=== PATIENT | male | born 1990 | race American Indian/Alaskan Native ===

== ENCOUNTER 2019-06-20 02:46 | Emergency (ER) | payer SELFPAY ==
[2019-06-20 02:57] VITALS: BP 123/84
[2019-06-20] MEDS ORDERED: LIDOCAINE-MPF (1%) 10 MG/1 ML VIAL 5 ML INFILTRATI ONE (03:24)
--- NOTE | 2019-06-20 04:06 | Emergency Department Report ---
ED Male HPI - General Chief complaint: Urogenital-Male Stated complaint: PENIS DISCHARGE Source: patient Mode of arrival: Ambulatory Limitations: No Limitations - History of Present Illness Initial comments: Patient is a 29-year-old -Filipino male with no past medical history presents to the ED with complaint of acute onset persistent dysuria, urinary frequency and urgency, penile discharge for the last 2 days. Patient states that his sexual partner was recently diagnosed and treated for gonorrhea and chlamydia about 1 week ago. Patient states that the pain has worsened in the last 12 hours. Patient denies dizziness, fever, chills, cough, nausea, vomiting, chest pain, testicular pain, scrotal pain, hematuria or traumatic injury. MD Complaint: penile discharge, dysuria -: Sudden, days(s) (2) Location: penis Radiation: none Severity: moderate Severity scale (0 -10): 4 Quality: aching, burning Consistency: constant Improves with: none Worsens with: urination denies other symptoms, discharge, dysuria. denies: swelling, mass, rash, urinary retention, blood in urine, fever, nausea/vomiting, incontinence, other - Related Data Sexually active: Yes Previous Rx's Medication Instructions Recorded Last Taken Type Azithromycin 1,000 mg PO ONCE #2 tablet 06/20/19 Unknown Rx Allergies Allergy/AdvReac Type Severity Reaction Status Date / Time No Known Allergies Allergy Unverified 06/20/19 02:54 ED Review of Systems ROS: Stated complaint: PENIS DISCHARGE Other details as noted in HPI Constitutional: denies: chills, fever Eyes: denies: eye pain, eye discharge, vision change ENT: denies: ear pain, throat pain Respiratory: denies: cough, shortness of breath, wheezing Cardiovascular: denies: chest pain, palpitations Endocrine: no symptoms reported Gastrointestinal: denies: abdominal pain, nausea, diarrhea Genitourinary: urgency, frequency, discharge. denies: dysuria, testicular pain Musculoskeletal: denies: back pain, joint swelling, arthralgia Skin: denies: rash, lesions Neurological: denies: headache, weakness, paresthesias Psychiatric: denies: anxiety, depression Hematological/Lymphatic: denies: easy bleeding, easy bruising ED Past Medical Hx - Past Medical History Previous Medical History?: No - Surgical History Past Surgical History?: No - Social History Smoking Status: Never Smoker Substance Use Type: None - Medications Home Medications: Home Medications Medication Instructions Recorded Confirmed Last Taken Type Azithromycin 1,000 mg PO ONCE #2 tablet 06/20/19 Unknown Rx ED Physical Exam - General Limitations: No Limitations General appearance: alert, in no apparent distress - Head Head exam: Present: atraumatic, normocephalic, normal inspection - Eye Eye exam: Present: normal appearance, PERRL, EOMI Pupils: Present: normal accommodation - ENT ENT exam: Present: normal exam, normal orophraynx, mucous membranes moist, TM's normal bilaterally, normal external ear exam - Neck Neck exam: Present: normal inspection, full ROM - Respiratory Respiratory exam: Present: normal lung sounds bilaterally. Absent: respiratory distress, wheezes, rhonchi, chest wall tenderness, accessory muscle use, decreased breath sounds, prolonged expiratory - Cardiovascular Cardiovascular Exam: Present: regular rate, normal rhythm, normal heart sounds. Absent: systolic murmur, diastolic murmur, rubs, gallop - GI/Abdominal GI/Abdominal exam: Present: soft, normal bowel sounds. Absent: tenderness, guarding, rebound, hyperactive bowel sounds - exam: Present: urethral discharge External exam: Present: normal external exam - Extremities Exam Extremities exam: Present: normal inspection, full ROM, normal capillary refill - Back Exam Back exam: Present: normal inspection, full ROM. Absent: tenderness, muscle spasm, paraspinal tenderness - Neurological Exam Neurological exam: Present: alert, oriented X3, CN II-XII intact, normal gait, reflexes normal - Psychiatric Psychiatric exam: Present: normal affect, normal mood - Skin Skin exam: Present: warm, dry, intact, normal color. Absent: rash ED Course Vital Signs 06/20/19 02:50 Temperature 97.5 F L Pulse Rate 65 Respiratory 18 Rate Blood Pressure 123/84 O2 Sat by Pulse 100 Oximetry ED Medical Decision Making - Medical Decision Making This is a 29-year-old -Fil[place] male with no past medical history presents to the ED with complaint of acute onset persistent dysuria, urinary frequency and urgency, penile discharge for the last 2 days. Patient states that his sexual partner was recently diagnosed and treated for gonorrhea and chlamydia about 1 week ago. Patient states that the pain has worsened in the last 12 hours. In the ED, patient is alert and oriented x3 and is not in distress. Patient was empirically treated for gonorrhea in the ED with Rocephin 250 mg intramuscular injection. Urinalysis was collected for chlamydia and gonorrhea tests. Patient was discharged home on prescription for azithromycin for chlamydia treatment. Patient was advised to follow-up with [facility] for further evaluation and STD testing. Patient was also advised to ensure that he and the sexual partner gets treated at the health department. Patient was also educated on safe sexual practices. Patient was advised to return to the ED immediately if symptoms get worse. - Differential Diagnosis Urethritis; STD, UTI Critical care attestation.: If time is entered above; I have spent that time in minutes in the direct care of this critically ill patient, excluding procedure time. ED Disposition Clinical Impression: Urethritis, gonococcal, acute, STD (sexually transmitted disease) Disposition: TO HOME OR SELFCARE Is pt being admited?: No Does the pt Need Aspirin: No Condition: Stable Instructions: Gonococcal Urethritis (ED), Safe Sex (ED), Sexually Transmitted Diseases (ED) Additional Instructions: Take medication with food, drink plenty of fluids and follow-up with the [facility] for further STD testing and treatment. Ensure that your sex ual partner also gets treated for the same. Observe safe sexual practices. Return to the ED immediately if symptoms get worse. Prescriptions: Azithromycin 1,000 mg PO ONCE #2 tablet Referrals: [facility] Depart [Outside] - 3-5 Days Time of Disposition: 04:00 Print Language: ESTONIAN
[2019-06-20 04:24] LABS: Bacteria,Urine 1+ /HPF (Negative); Bilirubin,Urine NEG (Negative); Blood,Urine NEG (Negative); Color,Urine Yellow (Yellow); Mucus,Urine 1+ /HPF; Protein,Urine <15 mg/dL mg/dL (Negative)
== END 2019-06-20 04:31 | disposition home or self-care (01) ==
LOC: ED 02:46
DX: A54.01 Gonococcal cystitis and urethritis, unspecified (principal); A54.9 Gonococcal infection, unspecified; Z79.2 Long term (current) use of antibiotics
CPT/HCPCS: 81001; 87591; 96372; 99283; J0696